=== PATIENT | female | born 1965 | race Caucasian/White ===

== ENCOUNTER 2016-09-11 08:25 | Day surgery (SDC) | payer BC ==
--- NOTE | ~2016-09-11 | OP ---
Record Of Operation [facility] [address] [place]. [address] NAME: HIEU DODGE : 69 STATUS : REG [facility] PAT#: [id number] AGE: 51 ADM/REG DATE : 09/11/16 MR#: [id number] REPORT SERV DATE: 09/11/16 DICTATED BY: SERGIO MURPHY DATE: 09/11/16 REPORT STATUS : Draft TRANSCRIBED BY: MODL DATE: 09/11/16 DATE OF PROCEDURE: 09/11/2016 PREOPERATIVE DIAGNOSIS: Chronic cholecystitis. POSTOPERATIVE DIAGNOSIS: Chronic cholecystitis with cholelithiasis. PROCEDURE: Laparoscopic cholecystectomy (two-site). SURGEON: Sergio Murphy M.D. DESCRIPTION OF OPERATIVE PROCEDURE: The patient was brought to the operating suite, placed in supine position, underwent satisfactory general endotracheal anesthesia without incident. The skin of the abdomen was scrubbed, prepped, and draped in usual sterile fashion. 0.5% Marcaine with epinephrine was utilized as supplemental local anesthesia at all intended trocar sites. Initially, an infraumbilical incision was performed, dissecting through the skin and subcutaneous tissue to the umbilical fascia. This was in turn grasped with a Bakari clamp and elevated. A disposable Veress insufflation needle was inserted into the peritoneal cavity. Intraperitoneal tip location ascertained using the saline hanging drop method following which CO2 was insufflated for pressures of 15 mmHg throughout the case. After adequate insufflation pressure achieved, Veress needle was removed, disposable bladed shielded 11 mm trocar was inserted through the umbilical fascia into the peritoneal cavity, following which a rigid forward-viewing 10 mm laparoscope was inserted. Visualization of the intraabdominal parietes revealed no evidence of injury from initial insufflation or puncture. A cursory examination of the pelvis was normal. Attention was then turned to the upper abdomen where an additional 5 mm trocar was placed to the right of the falciform ligament and then an additional 5 mm grasping instrument was inserted through the umbilical fascia next to the umbilical trocar. The gallbladder was visualized. The fundus and body were elevated sequentially. Periduodenal fibrofatty adhesions were dissected free from the gallbladder using a combination of blunt and cautery dissection. [place] of Cal[place] was approached. Dissection of triangle of Calot was successful in identifying and skeletonizing the cystic duct, cystic duct-common duct junction, as well as the cystic artery. Both of these structures were controlled with multiple applications of the Weck 5 mm polymer clip system and divided, then using spatula cautery dissection the peritoneal attachments to the gallbladder and liver were divided. The gallbladder was removed from the subhepatic space. Hemostasis was assured. Then, the 10 mm scope was removed, the 5 mm laparoscope was inserted into the 10 mm umbilical port. The gallbladder neck was grasped and withdrawn and the gallbladder was Record Of Operation [address] [address] NAME: HIEU DODGE : 69 STATUS : REG [facility] PAT#: [id number] AGE: 51 ADM/REG DATE : 09/11/16 MR#: [id number] REPORT SERV DATE: 09/11/16 DICTATED BY: SERGIO MURPHY DATE: 09/11/16 REPORT STATUS : Draft TRANSCRIBED BY: ARIANNA DATE: 09/11/16 removed intact. Trocars removed. No muscular bleeding was noted. CO2 was allowed to egress from the peritoneal cavity. Umbilicus was closed with [id number] suture of 0 Vicryl. Subcutaneous tissue closed at all sites with interrupted 4-0 Vicryl, running subcuticular stitch 4-0 Vicryl for the skin. Dermabond skin adhesive placed. The gallbladder was opened on the back table. It was found to contain several small 1-2 mm stones. At termination procedure, sponge, needle, lap, and instrument counts were correct x3. ESTIMATED BLOOD LOSS: Less than 5 mL. WR/MODL Sergio Murphy M.D. / [id number] CC: Cyn Parisi M.D.
== END 2016-09-11 23:59 | disposition home or self-care (01) ==
LOC: MSC 08:25
PROVIDERS: Specialist
PROC: 0FT44ZZ Resection of Gallbladder, Percutaneous Endoscopic Approach (ICD-10-PCS; principal; 2016-09-11 10:00)
DX: K80.10 Calculus of gallbladder with chronic cholecystitis without obstruction (principal)
CPT/HCPCS: 84703; 88304; A9270-GY; J0690; J1885; J2175; J2250; J2405; J2550; J2710; J3010